=== PATIENT | male | born 1955 | race Caucasian/White ===

== ENCOUNTER 2018-02-12 10:02 | Emergency (ER) | payer OTHER ==
[~2018-02-12] VITALS: Ht 165.1 cm; Wt 86.2 kg
[2018-02-12 10:17] VITALS: BP 128/78
--- NOTE | 2018-02-12 10:22 | NUR ---
PATIENT WHEELCHAIR ASSISTED TO BED 3.
--- NOTE | 2018-02-12 10:25 | NUR ---
62M BIB DAUGHTER WITH C/O RIGHT KNEE PAIN. PT STS HE WAS WALKING "FAST" AND SUDDENLY HEAR A "POP". PT DENIES ANY RECENT INJURY OR FALL. LIMITED ROM TO RIGHT KNEE. PT STS UNABLE TO BEAR FULL WEIGHT ON RIGHT LEG. MILD SWELLING NOTED TO RIGHT KNEE. CAP RE FILL < 3 SECS AND PULSES +2. PT IS AOX4 TO PERSON, PLACE, SITUATION, AND TIME. RR ARE EVEN AND UNLABORED. PT POSITIONED TO COMFORT. AALL NEEDS MET AT THIS TIME. WILL CONTINUE TO MONITOR.
--- NOTE | 2018-02-12 10:28 | NUR ---
PT TAKEN TO XRAY VIA W/C ACCOMPANIED BY REGISTERED NURSE MATERNITY
[2018-02-12] MEDS ORDERED: IBUPROFEN 600 MG TAB PO ONE (11:55)
--- NOTE | 2018-02-12 12:13 | NUR ---
Applied 16 inch ortho knee immobilizer to patients right knee. Patient was given crutches adjusted to appropriate height, patient returned positive knowledge on proper use. PMSC's assessed and within normal limits.
[2018-02-12 13:04] VITALS: BP 136/90
== END 2018-02-12 13:04 | disposition home or self-care (01) ==
LOC: MED 10:02
DX: M23.206 Derangement of unspecified meniscus due to old tear or injury, right knee (principal)
CPT/HCPCS: 29505; 73562; 99284; Q0092

== ENCOUNTER 2022-08-24 11:00 | Day surgery (SDC) | payer OTHER ==
[~2022-08-24] VITALS: Ht 142.2 cm; Wt 77.1 kg
[2022-08-24] MEDS ORDERED: fentaNYL citrate 0.05 MG/ML VIAL ONE (14:14)
[2022-08-24] MEDS ORDERED: LIDOCAINE 2% 100 MG/5 ML UJET TP ONE (14:15)
[2022-08-24] MEDS ORDERED: fentaNYL citrate 0.05 MG/ML VIAL IVP ONE (15:10)
== END 2022-08-24 15:42 | disposition home or self-care (01) ==
LOC: MMU 11:00 → MDS 11:00
PROVIDERS: ATTEND Internal Medicine Gastroenterology
DX: Z12.11 Encounter for screening for malignant neoplasm of colon (principal); K63.5 Polyp of colon; Z86.010 Personal history of colon polyps; K57.30 Diverticulosis of large intestine without perforation or abscess without bleeding; I10 Essential (primary) hypertension; Z85.46 Personal history of malignant neoplasm of prostate; Z20.822 Contact with and (suspected) exposure to COVID-19
CPT/HCPCS: 45385; 87426; J3010